=== PATIENT | male | born 1945 | race Caucasian/White ===

== ENCOUNTER 2019-12-26 19:04 | Emergency (ER) | payer MEDICARE, OTHER ==
[~2019-12-26] VITALS: Ht 170.2 cm; Wt 88.5 kg
[~2019-12-26 19:04] MED LIST: CIPR250; HYDACE5 PO; IBUP800 PO; METF500 PO; [UNRECOGNIZED DRUG - REMARK]
[2019-12-26 19:47] LABS: BASOPHILS ABSOLUTE AUTO 0.02 K/mm3 (0.00-0.23); BASOPHILS PERCENT AUTO 0 % (0-2); EOSINOPHILS ABSOLUTE AUTO 0.25 K/mm3 (0.00-0.68); EOSINOPHILS PERCENT AUTO 5 % (0-6); Hematocrit 46.2 % (37.0-53.0); Hemoglobin 15.5 g/dL (13.5-17.5); IMMATURE GRAN ABSOLUTE AUTO 0.02 K/mm3 (0.00-0.10); IMMATURE GRAN PERCENT AUTO 0 % (0-1); LYMPHOCYTES ABSOLUTE AUTO 1.55 K/mm3 (0.84-5.20); LYMPHOCYTES PERCENT AUTO 29 % (21-46); MONOCYTES ABSOLUTE AUTO 0.49 K/mm3 (0.16-1.47); MONOCYTES PERCENT AUTO 9 % (4-13); Mean Corpuscular HGB 32.6 pg (26.0-34.0); Mean Corpuscular HGB Conc 33.5 g/dL (31.5-36.5); Mean Corpuscular Volume 97 fL (80-100); Mean Platelet Volume 8.8 fL (9.1-12.4); NEUTROPHILS ABSOLUTE AUTO 3.02 K/mm3 (1.96-9.15); NEUTROPHILS PERCENT AUTO 56 % (41-73); Platelet Count 145 K/mm3 (150-400); RDW Coefficient Variation 13.1 % (11.7-14.2); RDW Standard Deviation 47.3 fL (35.1-46.3); Red Blood Cell Count 4.75 M/mm3 (4.30-5.90); White Blood Cell Count 5.35 K/mm3 (4.00-11.30)
[2019-12-26 20:01] LABS: Alanine Aminotransfer (ALT/SGP 30 U/L (12-78); Albumin, Blood 4.2 g/dL (3.4-5.0); Albumin/Globulin Ratio 1.4 (0.8-1.8); Alk Phos 69 U/L (50-136); Anion Gap 6 mmol/L (6-16); Aspartate Aminotrans (AST/SGOT 18 U/L (12-37); Bilirubin, Total 0.4 mg/dL (0.1-1.0); Blood Urea Nitrogen 26 mg/dL (8-24); CO2, Blood 27 mmol/L (21-32); Calcium, Blood 9.1 mg/dL (8.5-10.1); Chloride, Blood 110 mmol/L (98-108); Creatinine, Blood 0.84 mg/dL (0.60-1.20); Glomerular Filtration Rate >60 (60-); Glucose, Blood 107 mg/dL (70-99); Potassium, Blood 4.2 mmol/L (3.5-5.5); Sodium, Blood 143 mmol/L (136-145); Total Protein, Blood 7.2 g/dL (6.4-8.2)
== END 2019-12-26 20:51 | disposition home or self-care (01) ==
LOC: ER 19:04
PROVIDERS: Emergency Medicine
DX: J40 Bronchitis, not specified as acute or chronic (principal); E11.9 Type 2 diabetes mellitus without complications; I10 Essential (primary) hypertension; I25.2 Old myocardial infarction; Z95.1 Presence of aortocoronary bypass graft; Z88.0 Allergy status to penicillin; Z79.84 Long term (current) use of oral hypoglycemic drugs
CPT/HCPCS: 36415; 71046; 80053; 85025; 93005; 93010; 99284-25

== ENCOUNTER 2021-06-05 09:33 | Emergency (ER) | payer OTHER ==
[~2021-06-05] VITALS: Ht 170.2 cm; Wt 83.0 kg
[2021-06-05 10:53] LABS: BASOPHILS ABSOLUTE AUTO 0.02 K/mm3 (0.00-0.23); BASOPHILS PERCENT AUTO 0 % (0-2); EOSINOPHILS PERCENT AUTO 2 % (0-6); Hemoglobin 16.4 g/dL (13.5-17.5); IMMATURE GRAN ABSOLUTE AUTO 0.04 K/mm3 (0.00-0.10); IMMATURE GRAN PERCENT AUTO 1 % (0-1); LYMPHOCYTES ABSOLUTE AUTO 1.18 K/mm3 (0.84-5.20); LYMPHOCYTES PERCENT AUTO 19 % (21-46); MONOCYTES ABSOLUTE AUTO 0.42 K/mm3 (0.16-1.47); MONOCYTES PERCENT AUTO 7 % (4-13); Mean Corpuscular HGB 31.7 pg (26.0-34.0); Mean Corpuscular HGB Conc 32.8 g/dL (31.5-36.5); Mean Corpuscular Volume 97 fL (80-100); Mean Platelet Volume 9.2 fL (9.1-12.4); NEUTROPHILS ABSOLUTE AUTO 4.56 K/mm3 (1.96-9.15); NEUTROPHILS PERCENT AUTO 72 % (41-73); Platelet Count 140 K/mm3 (150-400); RDW Coefficient Variation 13.5 % (11.7-14.2); RDW Standard Deviation 48.9 fL (35.1-46.3); Red Blood Cell Count 5.18 M/mm3 (4.30-5.90); White Blood Cell Count 6.32 K/mm3 (4.00-11.30)
[2021-06-05 11:11] LABS: Alanine Aminotransfer (ALT/SGP 32 U/L (12-78); Albumin, Blood 4.2 g/dL (3.4-5.0); Albumin/Globulin Ratio 1.3 (0.8-1.8); Alk Phos 78 U/L (50-136); Anion Gap 7 mmol/L (6-16); Aspartate Aminotrans (AST/SGOT 19 U/L (12-37); Bilirubin, Total 0.4 mg/dL (0.1-1.0); Blood Urea Nitrogen 28 mg/dL (8-24); Bun/Creatinine Ratio 31.9 (12.0-20.0); CO2, Blood 27 mmol/L (21-32); Calcium, Blood 9.3 mg/dL (8.5-10.1); Chloride, Blood 108 mmol/L (98-108); Creatinine, Blood 0.88 mg/dL (0.60-1.20); Globulin, Blood 3.3 g/dL (2.2-4.0); Glomerular Filtration Rate >60 (60-); Glucose, Blood 165 mg/dL (70-99); Potassium, Blood 4.4 mmol/L (3.5-5.5); Sodium, Blood 142 mmol/L (136-145); Total Protein, Blood 7.5 g/dL (6.4-8.2); Troponin I <0.015 ng/mL (0.000-0.040)
== END 2021-06-05 12:02 | disposition home or self-care (01) ==
LOC: ER 09:33
PROVIDERS: Emergency Medicine Emergency Medical Services
DX: S46.912A Strain of unspecified muscle, fascia and tendon at shoulder and upper arm level, left arm, initial encounter (principal); E11.9 Type 2 diabetes mellitus without complications; I10 Essential (primary) hypertension; I25.2 Old myocardial infarction; Z95.1 Presence of aortocoronary bypass graft; Z79.899 Other long term (current) drug therapy; Z79.84 Long term (current) use of oral hypoglycemic drugs; W19.XXXA Unspecified fall, initial encounter
CPT/HCPCS: 36415; 71045; 73030; 80053; 83880; 84484; 85025; 93005; 93010; 99283-25

== ENCOUNTER → 2021-09-14 | Outpatient (CLI) | payer MEDICARE, OTHER ==
[2021-09-14 19:56] LABS: Alanine Aminotransfer (ALT/SGP 30 U/L (12-78); Albumin, Blood 3.9 g/dL (3.4-5.0); Albumin/Globulin Ratio 1.3 (0.8-1.8); Alk Phos 87 U/L (50-136); Anion Gap 8 mmol/L (6-16); Aspartate Aminotrans (AST/SGOT 37 U/L (12-37); Bilirubin, Total 0.4 mg/dL (0.1-1.0); Blood Urea Nitrogen 30 mg/dL (8-24); Bun/Creatinine Ratio 34.9 (12.0-20.0); CO2, Blood 25 mmol/L (21-32); Chloride, Blood 108 mmol/L (98-108); Creatinine, Blood 0.86 mg/dL (0.60-1.20); Globulin, Blood 3.1 g/dL (2.2-4.0); Glomerular Filtration Rate >60 (60-); Glucose, Blood 232 mg/dL (70-99); Potassium, Blood 4.8 mmol/L (3.5-5.5); Sodium, Blood 141 mmol/L (136-145); Thyroxine (T4) 6.1 ug/dL (4.5-12.1)
== END | disposition home or self-care (01) ==
LOC: LAB SHORT 19:02 → LAB 19:02
PROVIDERS: Family Medicine
DX: I11.0 Hypertensive heart disease with heart failure (principal); I50.9 Heart failure, unspecified; E11.9 Type 2 diabetes mellitus without complications; E03.9 Hypothyroidism, unspecified
CPT/HCPCS: 80053; 83036; 83880; 84436; 84443

== ENCOUNTER → 2022-09-09 | Outpatient (CLI) | payer MEDICARE, OTHER ==
[2022-09-09 12:52] LABS: Hematocrit 43.3 % (37.0-53.0); Hemoglobin 14.4 g/dL (13.5-17.5); Mean Corpuscular HGB 31.5 pg (26.0-34.0); Mean Corpuscular HGB Conc 33.3 g/dL (31.5-36.5); Mean Corpuscular Volume 95 fL (80-100); Mean Platelet Volume 9.2 fL (9.1-12.4); Platelet Count 208 K/mm3 (150-400); RDW Coefficient Variation 12.9 % (11.7-14.2); Red Blood Cell Count 4.57 M/mm3 (4.30-5.90); White Blood Cell Count 5.22 K/mm3 (4.00-11.30)
[2022-09-09 14:08] LABS: Albumin, Blood 3.6 g/dL (3.4-5.0); Bilirubin, Total 0.3 mg/dL (0.1-1.0); Bun/Creatinine Ratio 36.7 (12.0-20.0); Calcium, Blood 9.2 mg/dL (8.5-10.1); Creatinine, Blood 0.79 mg/dL (0.60-1.20); Globulin, Blood 3.5 g/dL (2.2-4.0); Potassium, Blood 4.2 mmol/L (3.5-5.5); Total Protein, Blood 7.1 g/dL (6.4-8.2)
== END | disposition home or self-care (01) ==
LOC: LAB 10:36 → LAB SHORT 10:36
PROVIDERS: Family Medicine
DX: E11.9 Type 2 diabetes mellitus without complications (principal); I10 Essential (primary) hypertension
CPT/HCPCS: 80053; 83036; 85027

== ENCOUNTER 2022-11-18 09:26 | Emergency (ER) | payer OTHER ==
[~2022-11-18] VITALS: Ht 177.8 cm; Wt 83.9 kg
[2022-11-18 12:05] LABS: Influenza A, PCR NEGATIVE (NEGATIVE); Influenza B, PCR NEGATIVE (NEGATIVE); Resp Syncytial Virus, PCR NEGATIVE (NEGATIVE); SARS-Cov-2 (COVID-19) PCR, MMC NEGATIVE (NEGATIVE)
== END 2022-11-18 17:17 ==
LOC: ER 09:26
PROVIDERS: Student in an Organized Health Care Education/Training Program
DX: M25.561 Pain in right knee (principal); M17.11 Unilateral primary osteoarthritis, right knee; E11.9 Type 2 diabetes mellitus without complications; I10 Essential (primary) hypertension; I25.2 Old myocardial infarction; Z95.1 Presence of aortocoronary bypass graft; W01.0XXA Fall on same level from slipping, tripping and stumbling without subsequent striking against object, initial encounter; Z88.0 Allergy status to penicillin; Z79.84 Long term (current) use of oral hypoglycemic drugs
CPT/HCPCS: 0241U; 73562-RT; 97116; 97162; 97530; 99285-25; A9270

== ENCOUNTER 2023-02-19 02:02 | Emergency (ER) | payer OTHER ==
[~2023-02-19] VITALS: Ht 177.8 cm; Wt 77.1 kg
[~2023-02-19 02:02] MED LIST changes: +ALBU90OI INH; +ALDACTONE25 MG PO; +ASPI81CH PO; +FURO20 PO; +LEVSOD75 PO; +LORA10ER; +LORA10ER PO; +MULVITA PO; +OMEP20ER PO; +ONDA4ODT MM; +POTA10T; +POTA10T PO; +SERT50 PO; +TRAM50 PO; +ZOCOR20 MG PO
[2023-02-19 05:15] VITALS: BP 125/83
== END 2023-02-19 05:33 | disposition home or self-care (01) ==
LOC: ER 02:02
DX: M54.50 Low back pain, unspecified (principal); I10 Essential (primary) hypertension; E11.9 Type 2 diabetes mellitus without complications; I25.2 Old myocardial infarction; Z88.0 Allergy status to penicillin; Z79.82 Long term (current) use of aspirin; Z79.84 Long term (current) use of oral hypoglycemic drugs
CPT/HCPCS: 99283; A9270; J1885

== ENCOUNTER 2023-07-25 09:01 | Day surgery (SDC) | payer OTHER ==
[~2023-07-25] VITALS: Ht 170.2 cm; Wt 75.4 kg
[2023-07-25] VITALS (14 sets, daily range): BP systolic 97–141; BP diastolic 56–102
[~2023-07-25 09:01] MED LIST changes: +NAPR500 PO
[2023-07-25] MEDS ORDERED: JARDIANCE25 MG PO (09:30)
--- NOTE | 2023-07-25 10:05 | NUR ---
History, Chart, Medications and Allergies reviewed before start of procedure. Lungs clear T/O to Auscultation. Patient confirms NPO status and agrees with scheduled surgery. Pre-Op teaching done. Pt verbalizes understanding. Patient reports completing Chlorhexadine shower X2 prior to admission to hospital.
[2023-07-25] MEDS ORDERED: ACET500 PO (17:21)
[2023-07-25] MEDS ORDERED: OXYC5 PO (17:21)
--- NOTE | 2023-07-25 19:31 | NUR ---
SHIFT SUMMARY PT WASN'T ABLE TO WORK w/ THERAPY DUE TO LATE POST OP ARRIVAL. PLEASANT & KIND. DECLINED OOB FOR DINNER. REPORTS PAIN HAS TOLERABLE.
[2023-07-26 00:16] VITALS: BP 101/57
[2023-07-26 03:22] VITALS: BP 97/59
[2023-07-26 04:34] LABS: BASOPHILS ABSOLUTE AUTO 0.02 K/mm3 (0.00-0.23); BASOPHILS PERCENT AUTO 0 % (0-2); EOSINOPHILS ABSOLUTE AUTO 0.07 K/mm3 (0.00-0.68); EOSINOPHILS PERCENT AUTO 1 % (0-6); Hematocrit 36.8 % (37.0-53.0); Hemoglobin 11.6 g/dL (13.5-17.5); IMMATURE GRAN ABSOLUTE AUTO 0.03 K/mm3 (0.00-0.10); IMMATURE GRAN PERCENT AUTO 1 % (0-1); LYMPHOCYTES ABSOLUTE AUTO 0.94 K/mm3 (0.84-5.20); LYMPHOCYTES PERCENT AUTO 16 % (21-46); MONOCYTES ABSOLUTE AUTO 0.52 K/mm3 (0.16-1.47); MONOCYTES PERCENT AUTO 9 % (4-13); Mean Corpuscular HGB 31.9 pg (26.0-34.0); Mean Corpuscular HGB Conc 31.5 g/dL (31.5-36.5); Mean Corpuscular Volume 101 fL (80-100); Mean Platelet Volume 8.8 fL (9.1-12.4); NEUTROPHILS ABSOLUTE AUTO 4.36 K/mm3 (1.96-9.15); NEUTROPHILS PERCENT AUTO 73 % (41-73); Platelet Count 134 K/mm3 (150-400); RDW Coefficient Variation 14.1 % (11.7-14.2); RDW Standard Deviation 52.5 fL (35.1-46.3); Red Blood Cell Count 3.64 M/mm3 (4.30-5.90); White Blood Cell Count 5.94 K/mm3 (4.00-11.30)
[2023-07-26 04:54] LABS: Bun/Creatinine Ratio 26.1 (12.0-20.0); Calcium, Blood 8.3 mg/dL (8.5-10.1); Potassium, Blood 4.1 mmol/L (3.5-5.5)
--- NOTE | 2023-07-26 05:21 | NUR ---
SHIFT SUMMARY NOC. PT POD 1 FOR RIGHT TOTAL KNEE. PT'S AQUACEL X2 IS CLEAN, DRY, AND INTACT. PT HAD AN EPISODE OF N/V THIS SHIFT THAT WAS ALLEVIATED WITH ZOFRAN. PT VOIDING URINE AND TOLERATING PO INTAKE POST EMESIS. O2 SATS REMAINING ABOVE 93% ON RA. PT MEDICATED FOR PAIN X2 WITH RELIEF. PT RESTED FOR SHORT FREQUENT PERIODS THROUGHOUT THE NIGHT WITH CALL LIGHT IN REACH.
[2023-07-26 07:30] VITALS: BP 102/62
--- NOTE | 2023-07-26 10:48 | NUR ---
Spiritual care | Nurse Request. Pt. is awake in bed and welcomes my visit. Pt. is pleasant. Facillitate a life review with the Pt. Listen with interest and empathy and a calming presence. Rapport is established. Pt. displayed evidence of awareness and engagement. Pt. verbalized that he is waiting for a discharge plan, but that he new he "couldn't go home right away." Prayed with Pt. Pt. verbalized gratitude for the spiritual care visit.
[2023-07-26 14:37] VITALS: BP 102/61
--- NOTE | 2023-07-26 18:15 | NUR ---
TO [facility] VIA . SEBLE SENT. PT DOING WELL. PAIN WELL CONTROLLED, EATING, DRINKING, VOIDING. WILL CALL REPORT.
== END 2023-07-26 19:05 ==
LOC: ORSCMMR 09:01 → ORD 13:00 → ORSCMMR 13:00 → SURS 14:03 → ORSCMMR 07-26 19:05
PROVIDERS: Orthopaedic Surgery
PROC: 0SRC0JA Replacement of Right Knee Joint with Synthetic Substitute, Uncemented, Open Approach (ICD-10-PCS; principal; 2023-07-25 13:00)
DX: M17.11 Unilateral primary osteoarthritis, right knee (principal); I10 Essential (primary) hypertension; J45.909 Unspecified asthma, uncomplicated; K21.9 Gastro-esophageal reflux disease without esophagitis; E11.9 Type 2 diabetes mellitus without complications; E03.9 Hypothyroidism, unspecified; F41.8 Other specified anxiety disorders; E78.5 Hyperlipidemia, unspecified; G47.33 Obstructive sleep apnea (adult) (pediatric); Z79.899 Other long term (current) drug therapy; Z79.84 Long term (current) use of oral hypoglycemic drugs; Z79.82 Long term (current) use of aspirin
CPT/HCPCS: 36415; 73560-RT; 80048; 82947; 83735; 85025; 97110; 97116; 97162; 97530; A9270; C1713; C1776; J0171; J0690; J0735; J1885; J2250; J2371; J2405; J2704; J2795; J3010; J7120

== ENCOUNTER 2023-09-06 11:33 | Inpatient (IN) | payer OTHER ==
[~2023-09-06] VITALS: Ht 170.2 cm; Wt 74.3 kg
[~2023-09-06 11:33] MED LIST changes: +ACET500 PO; +JARDIANCE25 MG PO; +OXYC5 PO
[2023-09-06 13:19] LABS: BASOPHILS ABSOLUTE AUTO 0.03 K/mm3 (0.00-0.23); BASOPHILS PERCENT AUTO 0 % (0-2); EOSINOPHILS ABSOLUTE AUTO 0.23 K/mm3 (0.00-0.68); EOSINOPHILS PERCENT AUTO 3 % (0-6); Hematocrit 39.9 % (37.0-53.0); Hemoglobin 12.6 g/dL (13.5-17.5); IMMATURE GRAN ABSOLUTE AUTO 0.04 K/mm3 (0.00-0.10); IMMATURE GRAN PERCENT AUTO 1 % (0-1); LYMPHOCYTES ABSOLUTE AUTO 0.97 K/mm3 (0.84-5.20); LYMPHOCYTES PERCENT AUTO 14 % (21-46); MONOCYTES PERCENT AUTO 5 % (4-13); Mean Corpuscular HGB Conc 31.6 g/dL (31.5-36.5); Mean Corpuscular Volume 98 fL (80-100); Mean Platelet Volume 8.9 fL (9.1-12.4); NEUTROPHILS ABSOLUTE AUTO 5.17 K/mm3 (1.96-9.15); NEUTROPHILS PERCENT AUTO 77 % (41-73); Platelet Count 165 K/mm3 (150-400); RDW Standard Deviation 54.3 fL (35.1-46.3); Red Blood Cell Count 4.07 M/mm3 (4.30-5.90); White Blood Cell Count 6.74 K/mm3 (4.00-11.30)
[2023-09-06 13:26] LABS: Albumin, Blood 3.3 g/dL (3.4-5.0); Albumin/Globulin Ratio 1.1 (0.8-1.8); Bilirubin, Total 0.5 mg/dL (0.1-1.0); Bun/Creatinine Ratio 25.3 (12.0-20.0); Calcium, Blood 8.8 mg/dL (8.5-10.1); Creatinine, Blood 0.79 mg/dL (0.60-1.20); Total Protein, Blood 6.3 g/dL (6.4-8.2)
[2023-09-06 14:32] LABS: Influenza A, PCR NEGATIVE (NEGATIVE); Influenza B, PCR NEGATIVE (NEGATIVE); Resp Syncytial Virus, PCR NEGATIVE (NEGATIVE); SARS-Cov-2 (COVID-19) PCR, MMC NEGATIVE (NEGATIVE)
[2023-09-06 21:11] VITALS: BP 122/78
[2023-09-07] VITALS (13 sets, daily range): BP systolic 115–134; BP diastolic 76–92
--- NOTE | 2023-09-07 04:07 | NUR ---
SHIFT SUMMARY PATIENT IS ALERT AND ORIENTED. PATIENT IS A RECENT ADMIT FROM ED FOR A FALL. PATIENT IS FOUND TO HAVE A LEFT HIP FX. PATIENT HAS BEEN NPO SINCE MIDNIGHT PER ORDERS. PATIENT HAS HAD NO COMPLAINTS OF PAIN, NAUSEA, SOB OR VOMITTING THIS SHIFT. VITAL SIGNS REVIEWED. BED IN LOCKED AND LOWEST POSITION. CALL LIGHT IN PLACE. WILL MONITOR UNTIL SHIFT CHANGE.
[2023-09-07 06:17] LABS: Calcium, Blood 8.5 mg/dL (8.5-10.1); Creatinine, Blood 0.85 mg/dL (0.60-1.20); Potassium, Blood 3.9 mmol/L (3.5-5.5); Thyroid Stimulating Hormone 7.38 uIU/mL (0.360-4.800)
--- NOTE | 2023-09-07 19:54 | NUR ---
SHIFT SUMMARY: BERNARD IS A&OX4. VSS, MAINTAINING SATS ON 3L VIA NC. HE CONTINUES TO DENY PAIN DESPITE UNDERGOING SURGICAL INTERVENTION THIS AFTERNOON ON HIS LEFT HIP. DRESSING C/D&I. IV TO LEFT WRIST PATENT. CONDOM CATH IN PLACE. HE IS LYING IN BED WITH THE CALL LIGHT IN REACH. REPORT WAS GIVEN TO EMR IMPLEMENTATION SPECIALIST RN.
[2023-09-08 02:11] VITALS: BP 104/75
--- NOTE | 2023-09-08 02:48 | NUR ---
REPORT RECEIVIED VERIFIED VERY PLEASENT MAN NO ISSUES NO C/O PAIN. VSS, CONDOM CATH DRAINING. DRESSING TO LEFT HIP C/D/I, NO CHANGE IN RIGHT KNEE, PT ABLE TO MAKE NEEDS KNOWN, WILL CONT TO MONITOR
[2023-09-08 05:36] LABS: BASOPHILS ABSOLUTE AUTO 0.02 K/mm3 (0.00-0.23); BASOPHILS PERCENT AUTO 0 % (0-2); EOSINOPHILS ABSOLUTE AUTO 0.03 K/mm3 (0.00-0.68); EOSINOPHILS PERCENT AUTO 1 % (0-6); Hematocrit 40.9 % (37.0-53.0); Hemoglobin 13.3 g/dL (13.5-17.5); IMMATURE GRAN ABSOLUTE AUTO 0.04 K/mm3 (0.00-0.10); IMMATURE GRAN PERCENT AUTO 1 % (0-1); LYMPHOCYTES ABSOLUTE AUTO 0.51 K/mm3 (0.84-5.20); LYMPHOCYTES PERCENT AUTO 9 % (21-46); MONOCYTES ABSOLUTE AUTO 0.29 K/mm3 (0.16-1.47); MONOCYTES PERCENT AUTO 5 % (4-13); Mean Corpuscular HGB Conc 32.5 g/dL (31.5-36.5); Mean Corpuscular Volume 95 fL (80-100); Mean Platelet Volume 8.9 fL (9.1-12.4); NEUTROPHILS ABSOLUTE AUTO 4.64 K/mm3 (1.96-9.15); NEUTROPHILS PERCENT AUTO 84 % (41-73); Platelet Count 160 K/mm3 (150-400); RDW Coefficient Variation 14.6 % (11.7-14.2); RDW Standard Deviation 51.1 fL (35.1-46.3); Red Blood Cell Count 4.29 M/mm3 (4.30-5.90); White Blood Cell Count 5.53 K/mm3 (4.00-11.30)
[2023-09-08 06:38] LABS: Bun/Creatinine Ratio 32.7 (12.0-20.0); Calcium, Blood 8.8 mg/dL (8.5-10.1); Creatinine, Blood 1.01 mg/dL (0.60-1.20); Potassium, Blood 4.2 mmol/L (3.5-5.5)
[2023-09-08 07:47] VITALS: BP 120/83
[2023-09-08 15:59] VITALS: BP 105/70
--- NOTE | 2023-09-08 19:32 | NUR ---
SHIFT SUMMARY: BERNARD IS A&OX4. VSS, NO ACUTE EVENTS THIS SHIFT. HE REPORTED ADEQUATE PAIN CONTROL WITH MEDICATIONS PER MAR. HE IS TOLERATING PO INTAKE WELL, IV TO LEFT WRIST PATENT, AND HE IS AMBULATING WITH ONE-PERSON ASSIST WITH A FWW AND GAIT BELT. HE IS URINATING WITHOUT DIFFICULTY, CONDOM CATH IN PLACE. PT STATED THAT HE WOULD LIKE TO GO TO THE [facility] BEFORE RETURNING HOME AND THAT HE IS A WITH A SERVICE RELATED DISABILITY. PT HAS BEEN PLEASANT AND COOPERATIVE THROUGHOUT THE SHIFT. HE IS LYING IN BED WITH THE CALL LIGHT IN REACH. REPORT WAS GIVEN TO MANAGER FINANCIAL PLANNING RN.
[2023-09-08 19:34] VITALS: BP 115/74
[2023-09-09 03:17] VITALS: BP 104/71
--- NOTE | 2023-09-09 04:29 | NUR ---
REPORT RECEIVED VERIFIED. A/O VVS CONDOM CATH REMOVED AND PT NOW USING URINAL WITHOUT ANY ISSUES. MINIMAL PAIN NOTED TO LEFT HIP EVEN AFTER GETTIGN UP WITH PT. PT HOPING THAT HE IS ABLE TO GET [facility]OUGH [facility] FOR [facility]URY SINCE HE IS A DISABLED VET. I WILL PASS THAT ALONG IN DAY SHIFT. OTHERWISE PT DOING VERY WELL AND SLEEPING COMFORTABLY.
[2023-09-09 05:57] LABS: BASOPHILS ABSOLUTE AUTO 0.03 K/mm3 (0.00-0.23); BASOPHILS PERCENT AUTO 1 % (0-2); EOSINOPHILS ABSOLUTE AUTO 0.46 K/mm3 (0.00-0.68); EOSINOPHILS PERCENT AUTO 8 % (0-6); Hemoglobin 12.5 g/dL (13.5-17.5); IMMATURE GRAN ABSOLUTE AUTO 0.02 K/mm3 (0.00-0.10); IMMATURE GRAN PERCENT AUTO 0 % (0-1); LYMPHOCYTES PERCENT AUTO 22 % (21-46); MONOCYTES ABSOLUTE AUTO 0.41 K/mm3 (0.16-1.47); MONOCYTES PERCENT AUTO 7 % (4-13); Mean Corpuscular HGB 30.9 pg (26.0-34.0); Mean Corpuscular HGB Conc 32.1 g/dL (31.5-36.5); Mean Corpuscular Volume 96 fL (80-100); Mean Platelet Volume 9.3 fL (9.1-12.4); NEUTROPHILS PERCENT AUTO 62 % (41-73); Platelet Count 165 K/mm3 (150-400); RDW Coefficient Variation 14.7 % (11.7-14.2); RDW Standard Deviation 52.2 fL (35.1-46.3); Red Blood Cell Count 4.05 M/mm3 (4.30-5.90); White Blood Cell Count 5.52 K/mm3 (4.00-11.30)
[2023-09-09 06:43] LABS: Bun/Creatinine Ratio 41.2 (12.0-20.0); Calcium, Blood 8.8 mg/dL (8.5-10.1); Creatinine, Blood 1.02 mg/dL (0.60-1.20)
[2023-09-09 07:40] VITALS: BP 110/72
[2023-09-09 16:35] VITALS: BP 116/82
--- NOTE | 2023-09-09 16:47 | NUR ---
DAYSHIFT SUMMARY Patient alert & oriented x3, cooperative with cares. Patient OOB for all meals. Worked with PT today, walked hallway. CBGS WNL, SSI administred. Continuing to diuresis. Will continue plan of care.
[2023-09-09 19:27] VITALS: BP 108/63
[2023-09-10 04:37] VITALS: BP 109/79
--- NOTE | 2023-09-10 05:00 | NUR ---
NOC SHIFT SUMMARY: PT. A&O X4. NORCO GIVEN AT BEDTIME. WALKED IN HALLS LAST NIGHT. CALLS APPROPRIATELY. VOIDS IN URINAL. BED IN LOW POSITION. CALL LIGHT WITHIN REACH.
[2023-09-10 07:29] VITALS: BP 121/76
[2023-09-10] MEDS ORDERED: EUTHYROX175 MCG PO (11:49)
--- NOTE | 2023-09-10 14:14 | NUR ---
PT AWAKE DURING SHIFT REPORT. PLEASANT AND CO-OP WITH CARE. DENIED NEEDS. UP WITH 1P SBA USING FWW. SITTING UP TO EOB TO EAT BREAKFAST INDEPENDENTLY. DR CARDENAS IN TO SEE PT AND DISCUSS PLAN OF CARE. PT CLEARED FOR D/C HOME. DIE SET UP WORKER IN TO SEE PT TO VERIFY NEEDED EQUIPMENT. PT VERBALIZED THAT HE DID HAVE A CANE AND FWW AT HOME. PT'S VISITORS TO LATER MORNING AND ABLE TO TAKE PT HOME. PT ABLE TO DRESS HIMSELF AND TX TO W/C FOR D/C. D/C INSTRUCTIONS DISCUSSED WITH PT; VERBALIZED UNDERSTANDING. [facility] PER [facility] REQUEST. PT ASSISTED OUT TO CLINICAL COUNSELOR VIA W/C. FRIENDS ASSISTING.
== END 2023-09-10 13:11 | disposition home or self-care (01) | DRG 480 ==
LOC: ER 11:33 → MEDS 19:09
PROVIDERS: Internal Medicine; Orthopaedic Surgery; Student in an Organized Health Care Education/Training Program; ADMIT Internal Medicine
PROC: 0QH734Z Insertion of Internal Fixation Device into Left Upper Femur, Percutaneous Approach (ICD-10-PCS; principal; 2023-09-07 15:30)
DX: S72.012A Unspecified intracapsular fracture of left femur, initial encounter for closed fracture (principal); I50.33 Acute on chronic diastolic (congestive) heart failure; J96.01 Acute respiratory failure with hypoxia; F32.A Depression, unspecified; E86.0 Dehydration; I25.10 Atherosclerotic heart disease of native coronary artery without angina pectoris; I11.0 Hypertensive heart disease with heart failure; E11.42 Type 2 diabetes mellitus with diabetic polyneuropathy; E78.5 Hyperlipidemia, unspecified; E03.9 Hypothyroidism, unspecified; D64.9 Anemia, unspecified; I27.20 Pulmonary hypertension, unspecified; I08.1 Rheumatic disorders of both mitral and tricuspid valves; I25.2 Old myocardial infarction; Z95.1 Presence of aortocoronary bypass graft; Z98.890 Other specified postprocedural states; Z88.0 Allergy status to penicillin; Z79.82 Long term (current) use of aspirin; Z79.890 Hormone replacement therapy; Z79.84 Long term (current) use of oral hypoglycemic drugs; Z79.891 Long term (current) use of opiate analgesic; Z79.899 Other long term (current) drug therapy; Z11.52 Encounter for screening for COVID-19; W18.30XA Fall on same level, unspecified, initial encounter
CPT/HCPCS: 0241U; 36415; 71045; 72192; 73502; 80048; 80053; 82947; 83880; 84443; 85025; 93005; 93010; 93306; 94760; 96361; 96374; 97110; 97116; 97162; 97166; 97530; 97535; 99285-25; A9270; C1713; C1769; J0690; J1650; J1815; J1940; J2704; J2765; J3010; J7030; J7120

== ENCOUNTER 2024-08-14 21:04 | Emergency (ER) | payer OTHER ==
[~2024-08-14] VITALS: Ht 170.2 cm; Wt 77.1 kg
[~2024-08-14 21:04] MED LIST changes: +ALBU90OI; +ASPIR 8181 M1 PO; +ATOR20 PO; +CHOLBAM50 MG PO; +Calcium Carbon500 MG PO; +EUTHYROX175 MCG PO; +Flonase 0.05% N16 GM; +LEVSOD100 PO; +OXAYDO5 M1 PO; +PRAX237 ML; +SENNA LAXATIVE8.6 MG PO; +SENNA-DOCUSATE PO; +Vitamin D1000 UNI1 PO
[2024-08-15 02:30] VITALS: BP 123/69
[2024-08-15] MEDS ORDERED: Acetaminophen 325 MG TABLET PO ONE (03:15)
== END 2024-08-15 03:54 | disposition home or self-care (01) ==
LOC: ER 21:04
DX: S76.211A Strain of adductor muscle, fascia and tendon of right thigh, initial encounter (principal); E11.42 Type 2 diabetes mellitus with diabetic polyneuropathy; I25.2 Old myocardial infarction; I10 Essential (primary) hypertension; E11.9 Type 2 diabetes mellitus without complications; E03.9 Hypothyroidism, unspecified; M19.90 Unspecified osteoarthritis, unspecified site; X58.XXXA Exposure to other specified factors, initial encounter; Z79.82 Long term (current) use of aspirin; Z79.899 Other long term (current) drug therapy; Z79.84 Long term (current) use of oral hypoglycemic drugs; Z88.0 Allergy status to penicillin
CPT/HCPCS: 99283; A9270

== ENCOUNTER 2024-09-10 09:58 | Day surgery (SDC) | payer OTHER ==
[~2024-09-10] VITALS: Ht 170.2 cm; Wt 78.9 kg
[2024-09-10] VITALS (15 sets, daily range): BP systolic 108–139; BP diastolic 60–79
[~2024-09-10 09:58] MED LIST changes: +CALCIUM GLUCONA60 M1 PO; -Calcium Carbon500 MG PO; +FLONASE ALLERG9.9 ML; +FT SENNA-S 8.61 EACH PO; -SENNA-DOCUSATE PO; +SERT25 PO; +Vitamin B Comple1 EA PO
[2024-09-10] MEDS ORDERED: Omeprazole 20 MG CapCR PO PRN (10:45)
[2024-09-10] MEDS ORDERED: Fluticasone 0.05% Nasal Spray PRN (10:45)
[2024-09-10] MEDS ORDERED: Bisacodyl 10 MG Supp PR PRN (10:50)
[2024-09-10] MEDS ORDERED: DiphenhydrAMINE HCL 25 MG Cap PO PRN (10:50)
[2024-09-10] MEDS ORDERED: HYDROmorphone HCl/Pf 1MG SYR IV PRN (10:50)
[2024-09-10] MEDS ORDERED: FLU VACC TS2024-25(6MOS UP)/PF 45 MCG/0.5 ML SYRINGE IM SCH (10:50)
[2024-09-10] MEDS ORDERED: Metoclopramide HCl 5MG / ML 2ML Vial IV PRN (10:55)
[2024-09-10] MEDS ORDERED: OxyCODONE HCL 5 MG TAB PO PRN ×2 (10:55)
[2024-09-10] MEDS ORDERED: Lactated Ringer's 1,000 ML IV SCH ×2 (10:55→11:25)
[2024-09-10] MEDS ORDERED: Magnesium Hydroxide Conc 10 ML UDC PO PRN (10:55)
[2024-09-10] MEDS ORDERED: Ondansetron HCl 2 MG / ML 2ML Vial IV PRN (10:55)
[2024-09-10] MEDS ORDERED: Promethazine HCl 25 MG Tab PO PRN (11:00)
[2024-09-10] MEDS ORDERED: Albuterol HFA200 ACT/6.7 GM INH INH PRN (11:05)
[2024-09-10] MEDS ORDERED: Acetaminophen 500 MG Tab PO SCH ×2 (11:25→16:00)
[2024-09-10] MEDS ORDERED: Clindamycin 900mg in D5W 50ML 50 ML IV SCH (11:25)
[2024-09-10] MEDS ORDERED: Chlorhexidine Mouth Care 15 ML UDC MT SCH (11:25)
[2024-09-10] MEDS ORDERED: Ropivacaine 0.5% HCl/Pf 123.125 MG,EPINEPHrine HCL 0.25 MG,Ketorolac Tromethamine 15 MG... INFIL SCH (11:25)
[2024-09-10] MEDS ORDERED: Tranexamic Acid 1,000 MG in NS 100 ML IV SCH (11:25)
[2024-09-10] MEDS ORDERED: Ketorolac Tromethamine 15mg Vial IV SCH (12:00)
--- NOTE | 2024-09-10 12:09 | NUR ---
INTO [facility]. PT REPORTS 4/10 GENERALIZED PAIN. HISTORY AND ALLERGIES REVIEWED. LUNGS CLEAR. NPO STATUS CONFIRMED. CHLORHEXIDINE SHOWER AND WIPES X 2. PT TO [facility] OP. PT BELONGINGS TO ROOM 223.
[2024-09-10] MEDS ORDERED: OxyCODONE HCL 10 MG TABCR PO SCH (12:40)
[2024-09-10] MEDS ORDERED: propofoL 60 ML IV ONE (13:24)
[2024-09-10] MEDS ORDERED: FentaNYL Citrate 50 MCG/ML 2 ML Injection ONE ×2 (13:24→16:26)
[2024-09-10] MEDS ORDERED: Midazolam HCl 1MG / ML 2ML Vial ONE (13:24)
[2024-09-10] MEDS ORDERED: ePHEDrine Sulfate 50 MG/ML 1ML Injection ONE ×2 (14:53→16:38)
[2024-09-10] MEDS ORDERED: propofoL 20 ML IV ONE (15:09)
[2024-09-10] MEDS ORDERED: Ketorolac Tromethamine 30mg Vial IV ONE (16:23)
[2024-09-10] MEDS ORDERED: Glycopyrrolate 0.2 MG/ML 5ML VIAL ONE (16:38)
[2024-09-10] MEDS ORDERED: Ondansetron HCl 2 MG / ML 2ML Vial ONE (16:50)
[2024-09-10] MEDS ORDERED: MetFORMIN HCl 500 mg PO SCH (17:00)
--- NOTE | 2024-09-10 17:11 | NUR ---
ARRIVAL TO UNIT AFTER RECEIVING REPORT FROM CARPENTER PACKING, PATIENT TRANSFERRED TO UNIT VIA BED AT APPROX 1700. PATIENT LETHARGIC POST OP, EASILY AROUSABLE WITH VERBAL STIMULI. ANSWERS ORIENTATION QUESTIONS APPROPRIATELY. COMMUNICATES NEEDS EFFECTIVELY. VSS. BRADYCARDIC 40s-50s. BP STABLE. TOLERATING ROOM AIR, SATs >90%. HOME CPAP AT BEDSIDE - ORDER IN PLACE FOR RT TO SET UP DEVICE FOR USE. S/P L TKA - DRESSING C/D/I. NO SHADOWING NOTED FROM CHRISTY WRAP. COOLING DEVICE IN PLACE. RECEIVED SPINAL - ABLE TO MOVE BLE SOME BUT IS UNABLE TO WIGGLE TOES. PPP. TOLERATING SMALL SIPS OF WATER AND SNACKS. CALL LIGHT IN REACH. LR INFUSING TO GRAVITY.
--- NOTE | 2024-09-10 18:16 | NUR ---
SHIFT SUMMARY NO ACUTE CHANGES SINCE ARRIVAL TO UNIT. VS REMAIN STABLE. PATIENTs HR SUSTAINING 40s-50s. BP STABLE. REMAINS ON ROOM AIR. HOME CPAP SET UP AND READY FOR USE. REPEAT BLADDER SCAN PERFORMED SHOWING 330ML. PATIENT UNABLE TO VOID AT THIS TIME. INCREASED SENSATION TO BLE - IS ABLE TO MOVE TOES SOME. DENIES PAIN. DRESSING REMAINS C/D/I - NO SHADOWING NOTED. COOLING DEVICE IN PLACE. TOLERATING PO INTAKE - SALINE LOCKED. CALL LIGHT IN REACH. WILL CONTINUE TO MONITOR AND REPORT TO ONCOMING RN.
[2024-09-10] MEDS ORDERED: Docusate Sodium 100 MG Cap PO SCH (21:00)
[2024-09-10] MEDS ORDERED: CeFAZolin Sodium 2,000 MG in NS 100 ML IV SCH (21:30)
[2024-09-11 04:34] VITALS: BP 117/63
--- NOTE | 2024-09-11 05:04 | NUR ---
SHIFT SUMMARY POD 1 L TKA. NO ACUTE CHANGES OVERNIGHT. VSS. TOLERATING ORALS. AQUACEL C/D/I. VOIDING. AMBULATES USING FWW c GB & SBA. PT REPORTS PAIN TOLERABLE, MEDICATED PER EMAR c POLAR PACK IN USE. ANTICIPATED TO WORK c PHYSCIAL THERAPY THEN DISCHARGE HOME LATER TODAY. PT DRESSED, RESTING IN CHAIR, CALL LIGHT IN REACH, WILL REPORT TO DAY RN.
[2024-09-11 05:14] LABS: BASOPHILS ABSOLUTE AUTO 0.01 K/mm3 (0.00-0.23); BASOPHILS PERCENT AUTO 0 % (0-2); EOSINOPHILS ABSOLUTE AUTO 0.08 K/mm3 (0.00-0.68); EOSINOPHILS PERCENT AUTO 1 % (0-6); Hematocrit 35.5 % (37.0-53.0); Hemoglobin 11.5 g/dL (13.5-17.5); IMMATURE GRAN ABSOLUTE AUTO 0.02 K/mm3 (0.00-0.10); IMMATURE GRAN PERCENT AUTO 0 % (0-1); LYMPHOCYTES PERCENT AUTO 14 % (21-46); MONOCYTES ABSOLUTE AUTO 0.36 K/mm3 (0.16-1.47); MONOCYTES PERCENT AUTO 6 % (4-13); Mean Corpuscular HGB 32.6 pg (26.0-34.0); Mean Corpuscular HGB Conc 32.4 g/dL (31.5-36.5); Mean Corpuscular Volume 101 fL (80-100); Mean Platelet Volume 9.1 fL (9.1-12.4); NEUTROPHILS ABSOLUTE AUTO 5.21 K/mm3 (1.96-9.15); NEUTROPHILS PERCENT AUTO 79 % (41-73); Platelet Count 117 K/mm3 (150-400); RDW Coefficient Variation 13.8 % (11.7-14.2); RDW Standard Deviation 50.6 fL (35.1-46.3); Red Blood Cell Count 3.53 M/mm3 (4.30-5.90); White Blood Cell Count 6.58 K/mm3 (4.00-11.30)
[2024-09-11 05:48] LABS: Bun/Creatinine Ratio 19.5 (12.0-20.0); Calcium, Blood 8.5 mg/dL (8.5-10.1); Creatinine, Blood 0.82 mg/dL (0.60-1.20); Magnesium, Blood 1.7 mg/dL (1.6-2.4); Potassium, Blood 4.1 mmol/L (3.5-5.5)
[2024-09-11] MEDS ORDERED: Levothyroxine Sodium 0.1 MG Tab PO SCH (06:00)
[2024-09-11 07:01] VITALS: BP 106/54
[2024-09-11] MEDS ORDERED: ACET500 PO (07:17)
[2024-09-11] MEDS ORDERED: OXYC5 PO (07:18)
[2024-09-11] MEDS ORDERED: SULTRIDS PO (07:18)
[2024-09-11] MEDS ORDERED: Sertraline HCl 50 MG Tab PO SCH (09:00)
[2024-09-11] MEDS ORDERED: Empagliflozin 25 MG TAB PO SCH (09:00)
[2024-09-11] MEDS ORDERED: Potassium Chloride 10 Meq Tablet SA PO SCH (09:00)
[2024-09-11] MEDS ORDERED: Aspirin 81 MG Chew PO SCH (09:00)
--- NOTE | 2024-09-11 10:32 | NUR ---
MORNING NOTE ASSUMED CARE AT APPROX 0715. PATIENT ALERT AND ORIENTED X4. COMMUNICATES NEEDS EFFECTIVELY. VSS. POD 1 L TKA - X2 AQUACEL DRESSINGS C/D/I. PAIN TOLERABLE PER EMAR AND WITH COOLING DEVICE. TOLERATING PO INTAKE. VOIDING. WORKED WITH PHYSICAL THERAPY EVAL - RECOMMENDING DC TO SNF. CASE MANAGEMENT MANAGING DC - AWAITING FOR [facility] AUTH FOR DC TO [place]. CALL LIGHT IN REACH.
[2024-09-11 15:26] VITALS: BP 102/59
--- NOTE | 2024-09-11 17:11 | NUR ---
SHIFT SUMMARY NO ACUTE EVENTS SINCE PREVIOUS DOCUMENTATION. VSS. POD 1 L TKA - X2 AQUACEL DRESSINGS C/D/I. CLEARED BY PHYSICAL THERAPY FOR DC TO SNF. PLAN TO DC TO [facility] TOMORROW. UP WITH 1P ASSIST FWW GB TO RESTROOM. IN RECLINER MAJORITY OF THE DAY. PAIN MANAGED PER EMAR AND WITH COOLING DEVICE. VOIDING. TOLERATING PO INTAKE. CALL LIGHT IN REACH. WILL CONTINUE TO MONITOR AND REPORT TO ONCOMING RN.
[2024-09-11 19:30] VITALS: BP 113/59
[2024-09-12 03:29] VITALS: BP 122/74
--- NOTE | 2024-09-12 04:37 | NUR ---
SHIFT SUMMARY POD 2 L TKA. NO ACUTE CHANGES OVERNIGHT. VSS, CONT BOIX IN USE R/T STABLE HR IN 40s-50s. TOLERATING ORALS. AQUACEL C/D/I. VOIDING. AMBULATES USING FWW c GB & SBA. PT REPORTS PAIN TOLERABLE, MEDICATED PER EMAR c POLAR PACK IN USE. ANTICIPATED DISCHARGE TO [facility] LAT[facility] TODAY. BED IN LOWEST POSITION, CALL LIGHT IN REACH, WILL REPORT TO DAY RN.
[2024-09-12 07:30] VITALS: BP 113/76
--- NOTE | 2024-09-12 09:05 | NUR ---
REPORT TO WI MOTEL MANAGER
--- NOTE | 2024-09-12 10:53 | NUR ---
TRANSPORTATION ARRIVED. ADDIEGS & INSTRUCTIONS SENT w/ BELONGINGS. [facility] TO [facility].
== END 2024-09-12 10:54 | disposition home or self-care (01) ==
LOC: ORSCMMR 09:58 → ORD 15:30 → SURS 16:27 → ORSCMMR 09-12 10:54 → ORD 10-29 14:30
PROVIDERS: Orthopaedic Surgery
DX: M17.12 Unilateral primary osteoarthritis, left knee (principal); I10 Essential (primary) hypertension; I25.10 Atherosclerotic heart disease of native coronary artery without angina pectoris; J44.9 Chronic obstructive pulmonary disease, unspecified; E11.9 Type 2 diabetes mellitus without complications; E03.9 Hypothyroidism, unspecified; Z79.84 Long term (current) use of oral hypoglycemic drugs; Z79.899 Other long term (current) drug therapy; K21.9 Gastro-esophageal reflux disease without esophagitis; Z79.82 Long term (current) use of aspirin; E78.5 Hyperlipidemia, unspecified; F41.9 Anxiety disorder, unspecified; F32.A Depression, unspecified
CPT/HCPCS: 27447; 0055T; 36415; 73560-LT; 80048; 82947; 83735; 85025; 94762; 97110; 97116; 97162; A9270; C1713; C1776; J0171; J0690; J0735; J1885; J2250; J2405; J2704; J2795; J3010; J7120

== ENCOUNTER 2025-02-01 05:22 | Inpatient (IN) | payer MEDICARE ==
[~2025-02-01] VITALS: Ht 170.2 cm; Wt 74.7 kg
[2025-02-01] VITALS (20 sets, daily range): BP systolic 83–127; BP diastolic 44–83
[~2025-02-01 05:22] MED LIST changes: +SULTRIDS PO
[2025-02-01] MEDS ORDERED: Chlorhexidine Mouth Care 15 ML UDC MT SCH (06:35)
[2025-02-01] MEDS ORDERED: Acetaminophen 500 MG Tab PO SCH ×2 (06:35→08:00)
[2025-02-01] MEDS ORDERED: OxyCODONE HCL 10 MG TABCR PO SCH (06:35)
[2025-02-01] MEDS ORDERED: CeFAZolin Sodium 2,000 MG in NS 100 ML IV SCH ×2 (06:35→16:00)
[2025-02-01] MEDS ORDERED: Tranexamic Acid 100 ML IV SCH ×2 (06:35→09:05)
[2025-02-01] MEDS ORDERED: Lactated Ringer's 1,000 ML IV SCH ×3 (06:35→20:45)
[2025-02-01] MEDS ORDERED: Midazolam HCl 1MG / ML 2ML Vial ONE (07:11)
[2025-02-01] MEDS ORDERED: FentaNYL Citrate 50 MCG/ML 2 ML Injection ONE (07:32)
[2025-02-01] MEDS ORDERED: propofoL 20 ML IV ONE (07:33)
--- NOTE | 2025-02-01 07:36 | NUR ---
07 - time out completed for interscaling block with Dr Cole. Pt placed on O2 2L NC AND BIOX FOR MONITORING. PROCEDURE START 724 - FINISH 728. Pt tolerated well.
[2025-02-01] MEDS ORDERED: Fluticasone 0.05% Nasal Spray PRN (07:40)
[2025-02-01] MEDS ORDERED: Magnesium Hydroxide Conc 10 ML UDC PO PRN (07:45)
[2025-02-01] MEDS ORDERED: Ondansetron HCl 2 MG / ML 2ML Vial IV PRN (07:45)
[2025-02-01] MEDS ORDERED: Metoclopramide HCl 5MG / ML 2ML Vial IV PRN (07:45)
[2025-02-01] MEDS ORDERED: DiphenhydrAMINE HCL 25 MG Cap PO PRN (07:50)
[2025-02-01] MEDS ORDERED: HYDROmorphone HCl/Pf 1MG SYR IV PRN (07:50)
[2025-02-01] MEDS ORDERED: Bisacodyl 10 MG Supp PR PRN (07:50)
[2025-02-01] MEDS ORDERED: OxyCODONE HCL 5 MG TAB PO PRN ×2 (07:55)
[2025-02-01] MEDS ORDERED: Promethazine HCl 25 MG Tab PO PRN (07:55)
[2025-02-01] MEDS ORDERED: Prochlorperazine Edisylate 10 mg Vial IV PRN (07:55)
[2025-02-01] MEDS ORDERED: MetFORMIN HCl 500 mg PO SCH (08:00)
[2025-02-01] MEDS ORDERED: ePHEDrine Sulfate 50 MG/ML 1ML Injection ONE (08:49)
[2025-02-01] MEDS ORDERED: Sertraline HCl 100 MG Tab PO SCH (09:00)
[2025-02-01] MEDS ORDERED: Docusate Sodium 100 MG Cap PO SCH (09:00)
[2025-02-01] MEDS ORDERED: Empagliflozin 25 MG TAB PO SCH (09:00)
[2025-02-01] MEDS ORDERED: Albuterol HFA200 ACT/6.7 GM INH INH PRN (09:00)
[2025-02-01] MEDS ORDERED: Potassium Chloride 10 Meq Tablet SA PO SCH (09:00)
[2025-02-01] MEDS ORDERED: Sugammadex Sodium 200 MG/2ML SDV (100 MG/ML) ONE (10:11)
[2025-02-01] MEDS ORDERED: Phenylephrine HCl 100 MCG/ML-NS 10MLSYR (1MG/10ML) ONE (10:30)
[2025-02-01] MEDS ORDERED: Ondansetron HCl 2 MG / ML 2ML Vial ONE (10:30)
[2025-02-01] MEDS ORDERED: Rocuronium Bromide 10 MG/ML 5ML Injection IV ONE (10:30)
[2025-02-01] MEDS ORDERED: Dexamethasone Sod Phos 10 MG/ML 1ML VIAL ONE (10:30)
[2025-02-01] MEDS ORDERED: Bupivacaine 0.5% HCl 5 MG/ML 30MLVIAL ONE (10:30)
[2025-02-01] MEDS ORDERED: Lidocaine HCl 2% 20 ML MDV ONE (10:30)
[2025-02-01] MEDS ORDERED: Insulin Regular 100 UNIT/ML 10ML Vial SC SCH (11:30)
[2025-02-01] MEDS ORDERED: Ketorolac Tromethamine 15mg Vial IV SCH (12:00)
--- NOTE | 2025-02-01 12:00 | NUR ---
PT ARRIVED TO RM 215 FROM PACU AT 1120. PT ALERT, ORIENTED AND PLEASANT UPON ARRIVAL. R ARM IN AN IMMOBILIZER. PT UNABLE TO MOVE FINGERS ON HIS RIGHT HAND, PER TIMING MACHINE OPERATOR, PT HAD A NERVE BLOCK. CAP REFILL TO ALL EXTREMITIES WNL. PULSES PRESENT AND PALPABLE. PT APPEARED TO HAVE A RIGHT SIDED FACIAL DROOP, SLURRED/MUMBLED SPEECH. WHEN ASKED TO SMILE PT'S FACIAL MOVEMENTS ARE EQUAL BILATERALLY. PT WAS UNABLE TO TRACK WITH HIS EYES WHEN ASKED IF HE WOULD FOLLOW A FINGER, PT STATED HE THOUGHT HE WAS MOVING HIS EYES WHEN LOOKING AT THE FINGER. PT WAS ABLE TO MOVE HIS EYES TO LOOK AT STAFF WHEN TALKING. PT WAS ALSO BRADYCARDIC, HR 35 TO 60, PT REPORTED FEELING DIZZY. DR. SOFIA NOTIFIED OF OBSERVATIONS. SHE CAME AND ASSESSED PT, PER DR. SOFIA THIS, SPEECH AND FACIAL APPEARANCE ARE PT'S BASELINE. TELE PLACED. DR. SOFIA ROUNDED AT 1145, PT'S ALERTNESS HAD IMPROVED BY THAT TIME. PT IS NO LONGER BRADYCARDIC.
--- NOTE | 2025-02-01 12:50 | NUR ---
REPORT GIVEN TO CHIDI CHONG.
--- NOTE | 2025-02-01 12:52 | NUR ---
REPORT RECEIVED FROM JAKE CHONG AT THIS TIME. ASSUMED CARE. COMMERCIAL ADMINISTRATOR ALSO CALLED AT THIS TIME. PT IS IN SR WITH RATE OF 79, 1ST DEGREE, BBB, PAC AND PVC'S PER SCREEN ROOM OPERATOR SHARON
--- NOTE | 2025-02-01 12:57 | NUR ---
TELE PLACED. HR @73. REPORT GIVEN TO CHIDI CHONG.
--- NOTE | 2025-02-01 14:06 | NUR ---
REVIEWED RHYTHM STRIP AND AGREE WITH HARDBOARD COATING MACHINE OPERATOR SHARON
--- NOTE | 2025-02-01 20:42 | NUR ---
BP/TELE/PHYSICIAN COMMUNICATION BP LOW TONIGHT 84/52 MANUALLY CHECKED. TELE SB 1ST DEGREE HB @47-48. NOTIFIED JANELL OF CONSULT R/T PERSISTANT BRADYCARDIA. HE ORDERED 1L BOLUS OF LR & LABS. WILL CONT TO ASSESS & MONITOR.
[2025-02-01] MEDS ORDERED: Lactated Ringer's 1,000 ML IV ONE (20:45)
[2025-02-01 21:26] LABS: BASOPHILS ABSOLUTE AUTO 0.01 K/mm3 (0.00-0.23); BASOPHILS PERCENT AUTO 0 % (0-2); EOSINOPHILS ABSOLUTE AUTO 0.01 K/mm3 (0.00-0.68); EOSINOPHILS PERCENT AUTO 0 % (0-6); Hematocrit 36.7 % (37.0-53.0); Hemoglobin 11.6 g/dL (13.5-17.5); IMMATURE GRAN ABSOLUTE AUTO 0.03 K/mm3 (0.00-0.10); IMMATURE GRAN PERCENT AUTO 0 % (0-1); LYMPHOCYTES ABSOLUTE AUTO 0.63 K/mm3 (0.84-5.20); LYMPHOCYTES PERCENT AUTO 9 % (21-46); MONOCYTES ABSOLUTE AUTO 0.45 K/mm3 (0.16-1.47); MONOCYTES PERCENT AUTO 6 % (4-13); Mean Corpuscular HGB 30.4 pg (26.0-34.0); Mean Corpuscular HGB Conc 31.6 g/dL (31.5-36.5); Mean Corpuscular Volume 96 fL (80-100); Mean Platelet Volume 8.7 fL (9.1-12.4); NEUTROPHILS ABSOLUTE AUTO 6.32 K/mm3 (1.96-9.15); NEUTROPHILS PERCENT AUTO 85 % (41-73); Platelet Count 120 K/mm3 (150-400); RDW Coefficient Variation 15.2 % (11.7-14.2); RDW Standard Deviation 53.7 fL (35.1-46.3); Red Blood Cell Count 3.82 M/mm3 (4.30-5.90); White Blood Cell Count 7.45 K/mm3 (4.00-11.30)
[2025-02-01 21:41] LABS: Bun/Creatinine Ratio 33.6 (12.0-20.0); Calcium, Blood 8.4 mg/dL (8.5-10.1); Creatinine, Blood 0.89 mg/dL (0.60-1.20); Potassium, Blood 4.7 mmol/L (3.5-5.5); Thyroid Stimulating Hormone 3.53 uIU/mL (0.360-4.800)
--- NOTE | 2025-02-01 21:57 | NUR ---
LA/PHYSICIAN COMUNICATION LA REPORTED CRITICAL @4.2, NOTIFIED JANELL Araya. PT ALREADY RECIEVING LR INFUSION REGARDING PREVIOUS HYPOTENSION. BP HAS INCREASED TO 90/63. JANELL Araya INFORMED ME EITHER HIMSELF OR BA WILL COME ASSESS PT. WHILE WAITING FOR PHONE CALL FROM JANELL Araya PT HAD EPISODE EMESIS, WAS MEDICATED W/ZOFRAN, PT STATES HE HAS NAUSEA & EMESIS AFTER EATING EVEN AT HOME SOMETIMES.
[2025-02-01 23:36] LABS: Free Thyroxine 0.64 ng/dL (0.70-1.60); Magnesium, Blood 1.8 mg/dL (1.6-2.4)
[2025-02-02 00:33] LABS: BASOPHILS ABSOLUTE AUTO 0.02 K/mm3 (0.00-0.23); BASOPHILS PERCENT AUTO 0 % (0-2); EOSINOPHILS ABSOLUTE AUTO 0.02 K/mm3 (0.00-0.68); EOSINOPHILS PERCENT AUTO 0 % (0-6); Hemoglobin 11.8 g/dL (13.5-17.5); IMMATURE GRAN ABSOLUTE AUTO 0.03 K/mm3 (0.00-0.10); IMMATURE GRAN PERCENT AUTO 0 % (0-1); LYMPHOCYTES ABSOLUTE AUTO 0.87 K/mm3 (0.84-5.20); LYMPHOCYTES PERCENT AUTO 12 % (21-46); MONOCYTES ABSOLUTE AUTO 0.47 K/mm3 (0.16-1.47); MONOCYTES PERCENT AUTO 7 % (4-13); Mean Corpuscular HGB 30.6 pg (26.0-34.0); Mean Corpuscular HGB Conc 31.9 g/dL (31.5-36.5); Mean Corpuscular Volume 96 fL (80-100); Mean Platelet Volume 8.4 fL (9.1-12.4); NEUTROPHILS ABSOLUTE AUTO 5.63 K/mm3 (1.96-9.15); NEUTROPHILS PERCENT AUTO 80 % (41-73); Platelet Count 112 K/mm3 (150-400); RDW Coefficient Variation 15.3 % (11.7-14.2); RDW Standard Deviation 53.7 fL (35.1-46.3); Red Blood Cell Count 3.85 M/mm3 (4.30-5.90); White Blood Cell Count 7.04 K/mm3 (4.00-11.30)
[2025-02-02] MEDS ORDERED: Magnesium Sulf 2 GM/Water 50ML 50 ML IV ONE (02:50)
[2025-02-02] MEDS ORDERED: LevoFLOXacin 750 MG/D5W 150ML 150 ML IV SCH (02:58)
[2025-02-02 04:21] VITALS: BP 97/55
--- NOTE | 2025-02-02 05:06 | NUR ---
SHIFT SUMMARY AOX4. POD 1-R TOTAL SHOULDER. KAN HERNANDEZ C/D/I. IMMOBILIZER SLING IN PLACE, NWB TO R ARM. DENIES N/T. REPORTS MIN PAIN 11/12, MANAGED W/SCHEDULED TYLENOL & TORADOL. ABLE TO WIGGLE & GRAIN BROKER W/R HAND. R RADIAL PULSE STRONG, CAP REFILL <3 SEC. PT HYPOTENSIVE T/O NIGHT, SBP HAS NOW INCREASED TO 90'S. TELE SB 47 W/1ST DEGREE HB & BBB. PT HAD 2 EPISODES EMESIS, MEDICATED 2x W/ZOFRAN. PT STATES THIS OCCURS AT HOME IF HE LAYS DOWN BEFORE WAITING 2HRS AFTER EATING, ENCOURAGED PT TO REMAIN NPO EXCEPT WATER THIS AM UNTIL MD ABLE TO ROUND THIS AM. DR COSME ORDERED IV ABX STATING CHEST XRAY SHOWED PNEUMONIA. CALL LIGHT IN REACH & PT ABLE TO MAKE NEEDS KNOWN.
[2025-02-02] MEDS ORDERED: Levothyroxine Sodium 0.1 MG Tab PO SCH (06:00)
[2025-02-02 07:39] VITALS: BP 110/56
[2025-02-02] MEDS ORDERED: Enoxaparin 40 MG/0.4 ML SYR SC SCH (11:00)
--- NOTE | 2025-02-02 14:09 | NUR ---
TRIAL O2 NC 5L. BIPAP PRESENTLY TURNED OFF. SPO2 94%. WILL CONTINUE TO MONITOR.
--- NOTE | 2025-02-02 14:21 | NUR ---
IV TO SL PER ORDER
[2025-02-02 15:33] VITALS: BP 110/74
--- NOTE | 2025-02-02 16:52 | NUR ---
END OF SHIFT PT SITTING UP IN CHAIR. IV INFUSING LFA. DENIES PAIN PER PT. PT WEARING SHOULDER IMMOBILIZER R. POLAR PACK ON. WILL CONTINUE TO MONITOR.
[2025-02-02 18:23] VITALS: BP 98/60
[2025-02-03 04:14] VITALS: BP 124/66
[2025-02-03 07:14] VITALS: BP 113/72
--- NOTE | 2025-02-03 07:59 | NUR ---
SHIFT SUMMARY PATIENT SITTING UP IN RECLINER. PT STATED HE HAD A ROUGH NIGHT LAST NIGHT. SLEPT IN RECLINER AND IT WAS NOT GOOD. ENSURED PT THAT HE WILL BE SLEEPING IN HOSP BED TONIGHT. LS CLEAR UPPER LOBES AND LT LOWER, DIMINISHED RIGHT LOWER LOBE. IS AT BEDSIDE, HAD PATIENT DEMONSTRATE. HE WAS ABLE TO GET IT UP TO 1000. ENCOURAGED HIM TO USE IS EVERY HOUR. SHOULDER IMMOBILIZER IN PLACE. INCISION RIGHT SHOULDER CLOSED, SKIN GLUE AND OPEN TO AIR. RIGHT HAND WITH GOOD CIRC CHECKS, WIGGLES FINGERS. PT REPORTS THAT HIS HAND IS MOVING BETTER. MEDICATED PT WITH SCHEDULED AND PRN MEDS PER EMR. KAT HOSE IN PLACE. CONT. PULSE-OX TONIGHT. HR 60 AND O2 SATS 96% RA AT THIS TIME. REPORTS BM TODAY BUT SAID IT WAS HARD. ASKED FOR SOME PRUNE JUICE, GIVEN. HX STROKE WITH CORNER OF MOUTH DROOP NOTED. PATIENT SLEPT WELL IN BED WHEN NOT INTERRUPTED. GAVE HIM TORADOL IV AND TYLENOL PO AT [place] ORDERED AND PT WENT RIGHT TO SLEEP. CALL LIGHT IN REACH AND BED IN LOWEST POSITION. NO ACUTE CHANGES FROM INITAL SHIFT ASSESSMENT. GAVE REPORT TO BENJI CHONG WHO HAD THE PATIENT YESTERDAY.
--- NOTE | 2025-02-03 11:15 | NUR ---
IV TO SL
[2025-02-03 14:32] VITALS: BP 108/64
--- NOTE | 2025-02-03 17:40 | NUR ---
END OF SHIFT PT SITTING UP IN CHAIR EATING DINNER. SHOULDER IMMOBILIZER ON. DENIES COMPLAINTS. WILL CONTINUE TO MONITOR.
[2025-02-03 20:20] VITALS: BP 116/58
--- NOTE | 2025-02-04 04:35 | NUR ---
SHIFT SUMMARY PATIENT IS AOX4, SBA WITH CANE. R SHOULDER WITH IMMOBILIZER AND POLAR PACK IN PLACE. PRINEO DRESSING IS C/D/I. MEDICATED PER EMAR. VSS, CALL LIGHT IN REACH.
[2025-02-04 06:34] VITALS: BP 122/73
[2025-02-04 07:05] VITALS: BP 112/69
[2025-02-04] MEDS ORDERED: Empagliflozin 25 MG TAB PO SCH (09:00)
[2025-02-04 10:32] LABS: CORONAVIRUS COVID-19 AG Negative (NEGATIVE)
--- NOTE | 2025-02-04 10:41 | NUR ---
Pt. is awake and sitting up in a chair awaiting discharge to [facility] when he welcomes my visit. Pt. is pleasant. Facilitated a life review and considered matters of mukund and belief , and well as establishing common communtiy relationships. Pt. displayed evidence of being enaged, aware, and motivated to recover. Pt. verbalized grattiude for the care he has received from Dr. Michele. Prayed with the Pt. Pt. verbalized gratitude for the spiritual care visit.
[2025-02-04 11:04] VITALS: BP 118/64
--- NOTE | 2025-02-04 11:18 | NUR ---
REPORT CALLED TO MONSTER WEISS ID PHONE NUMBER: [phone] EXT [phone].
--- NOTE | 2025-02-04 11:39 | NUR ---
RENATA Russo PAP, CELL PHONE,FOREIGN BANKNOTE TELLER,ICE MCAHINE, HAT AND CLOTHES ALL PACKED BY THIS HEALTH INFORMATION TECHNOLOGIST AND SENT.
--- NOTE | 2025-02-04 12:14 | NUR ---
PT LEFT UNIT IN WC W/[facility]IONS TO [facility]
== END 2025-02-04 12:14 | DRG 483 ==
LOC: ORSCMMR 05:22 → ORD 07:30 → ORSCMMR 07:30 → SURS 07:43 → ORD 10:15 → SURS 11:20 → ORD 02-22 07:30
PROVIDERS: Internal Medicine; Nurse Practitioner Acute Care; ADMIT Orthopaedic Surgery
PROC: 0RRJ0JZ Replacement of Right Shoulder Joint with Synthetic Substitute, Open Approach (ICD-10-PCS; principal; 2025-02-01 07:30)
DX: M19.011 Primary osteoarthritis, right shoulder (principal); J18.9 Pneumonia, unspecified organism; F32.A Depression, unspecified; F41.9 Anxiety disorder, unspecified; E78.5 Hyperlipidemia, unspecified; E03.9 Hypothyroidism, unspecified; I10 Essential (primary) hypertension; G47.33 Obstructive sleep apnea (adult) (pediatric); I44.0 Atrioventricular block, first degree; Z98.890 Other specified postprocedural states; I95.9 Hypotension, unspecified; Z79.82 Long term (current) use of aspirin; Z79.899 Other long term (current) drug therapy; Z79.890 Hormone replacement therapy; Z79.84 Long term (current) use of oral hypoglycemic drugs; Z88.0 Allergy status to penicillin; I25.2 Old myocardial infarction; Z95.1 Presence of aortocoronary bypass graft; E11.42 Type 2 diabetes mellitus with diabetic polyneuropathy; E11.65 Type 2 diabetes mellitus with hyperglycemia
CPT/HCPCS: 36415; 71045; 73030; 80048; 82947; 83605; 83735; 83880; 84439; 84443; 84484; 85025; 87426-QW; 92610; 93005; 93010; 94762; 97162; 97165; 97530; 97535; A9270; C1713; C1776; J0690; J1100; J1650; J1815; J1885; J1956; J2250; J2371; J2405; J2704; J3010; J3475; J7120

== ENCOUNTER 2025-03-31 19:10 | Emergency (ER) | payer OTHER, MEDICARE ==
[~2025-03-31] VITALS: Ht 170.2 cm; Wt 31.8 kg
[2025-03-31 21:00] VITALS: BP 102/81
== END 2025-03-31 22:06 ==
LOC: ER 19:10
DX: S00.83XA Contusion of other part of head, initial encounter (principal); W01.198A Fall on same level from slipping, tripping and stumbling with subsequent striking against other object, initial encounter; E11.42 Type 2 diabetes mellitus with diabetic polyneuropathy; I25.2 Old myocardial infarction; E03.9 Hypothyroidism, unspecified; I10 Essential (primary) hypertension; Z88.0 Allergy status to penicillin; Z79.84 Long term (current) use of oral hypoglycemic drugs; Z79.82 Long term (current) use of aspirin; Z79.890 Hormone replacement therapy; Z79.899 Other long term (current) drug therapy
CPT/HCPCS: 70450; 99284-25